=== PATIENT | male | born 1935 | race Caucasian/White ===

== ENCOUNTER 2019-12-20 10:28 | Outpatient (CLI) | payer MEDICARE, SELFPAY ==
[2019-12-20 11:00] LABS: Basophils Absolute Auto 0.1 K/mm3 (0.0-0.1); Basophils Percent Auto 0.7 % (0.2-1.2); Eosinophils Absolute Auto 0.3 K/mm3 (0-0.3); Eosinophils Percent Auto 4.2 % (0-4.4); Hematocrit 40.4 % (42.0-52.0); Hemoglobin 13.1 g/dL (14.0-18.0); Immature Granulocyte Absolute 0.04 K/mm3 (0.00-0.031); Immature Granulocyte Percent A 0.5 % (0-0.5); Lymphocytes Percent Auto 26.5 % (18.3-44.2); Mean Corpuscular HGB Conc 32.4 g/dl (32-36); Mean Corpuscular Hemoglobin 27.9 pg (26-34); Mean Corpuscular Volume 86.1 fl (80-100); Mean Platelet Volume 10.2 fl (7.4-10.4); Monocytes Absolute Auto 0.7 K/mm3 (0.1-0.6); Monocytes Percent Auto 8.6 % (2.6-8.5); Neutrophils Absolute Auto 4.5 K/mm3 (1.3-6.7); Neutrophils Percent Auto 59.5 % (45.5-73.1); Platelet Count Result 309 k/mm3 (150-375); Red Blood Count 4.69 M/mm3 (4.6-6.20); White Blood Count 7.5 K/mm3 (4.5-10.0)
[2019-12-20 11:13] LABS: Alanine Aminotransferase 69 U/L (4-50); Albumin Level 4.5 g/dL (3.5-5.1); Alkaline Phosphatase 179 U/L (38-126); Aspartate Amino Transferase 65 U/L (17-59); Bilirubin,Total 0.8 mg/dL (0.2-1.3); Blood Urea Nitrogen 29 mg/dL (9-20); Calcium 9.7 mg/dL (8.4-10.2); Carbon Dioxide 30 mmol/L (22-30); Chloride 95 mmol/L (98-107); Cholesterol 153 mg/dL (0-200); Estimated Glomerular Filt Rate 30; Glucose 154 mg/dL (75-110); HDL Direct 29 mg/dL; Potassium 4.2 mmol/L (3.4-5.0); Sodium 137 mmol/L (137-145); Triglycerides 167 mg/dL (<150)
[2019-12-20 11:23] LABS: LDL Cholesterol Direct 97 mg/dL
== END 2019-12-20 10:29 | disposition home or self-care (01) ==
PROVIDERS: PCP Internal Medicine; Visit Provider Nurse Practitioner
DX: N18.3 Chronic kidney disease, stage 3 (moderate) (principal); E78.2 Mixed hyperlipidemia; I48.91 Unspecified atrial fibrillation
CPT/HCPCS: 36415; 80053; 80061; 85025

== ENCOUNTER 2019-12-21 15:32 | Outpatient (CLI) | payer MEDICARE, SELFPAY ==
[2019-12-24 23:02] LABS: Albumin 3.6 g/dL (3.8-4.8); Alpha 1 Globulin 0.3 g/dL (0.2-0.3); Alpha 2 Globulin 0.9 g/dL (0.5-0.9); Beta 1 Globulin 0.5 g/dL (0.4-0.6); Gamma Globulin 1.4 g/dL (0.8-1.7); Protein, Total 7.1 g/dL (6.1-8.1)
== END 2019-12-21 15:33 | disposition home or self-care (01) ==
LOC: ANHLAB 15:34
PROVIDERS: PCP Internal Medicine; Visit Provider Nurse Practitioner
DX: E88.09 Other disorders of plasma-protein metabolism, not elsewhere classified (principal)
CPT/HCPCS: 36415; 84155; 84165

== ENCOUNTER 2020-04-02 14:02 | Outpatient (CLI) | payer MEDICARE, SELFPAY ==
--- NOTE | ~2020-04-02 | US_ITS ---
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 COMPARISON: 06/22/2019 FINDINGS: Right and left brachial artery pressures of 116 mm Hg and 123 mm Hg, respectively, are concordant (no rmal difference <= 30 mmHg). The right high-thigh pressure index is 1.04 (normal > 1.2). Pressures we re not obtained in the left lower limb above the ankle due to reported prior multiple stents the left lower limb at indeterminate locations. The right ankle-brachial index (JAVIER) is 0.84 (normal >= 0.9-1). The right great toe-brachial index (T BI) is 0.62 (normal >= 0.6-0.8). The right lower extremity segmental pressure gradients are increased between the right above and [id number] popliteal arteries (normal gradients <= 20-30 mmHg betwee n adjacent levels on the same leg or the same levels on the two legs). Arterial waveforms are triphas ic at the right common femoral and superficial femoral arteries and biphasic more distally. There are brisk systolic upstrokes in the right common femoral, superficial femoral and popliteal arteries. De layed upstrokes with broadened systolic peaks in the right posterior tibial and dorsalis pedis arteri es. The left JAVIER is 1.27 however may be artifactually elevated due to vessel wall calcification has the v essels unable to be occluded on the prior study and the dorsalis pedis artery is also unable to be oc cluded in either the current or prior study. The left TBI is 0.33. Arterial waveforms are triphasic a t the left common femoral artery and biphasic more distally with brisk systolic upstrokes throughout. IMPRESSION: 1. Arterial occlusive disease with mildly decreased right JAVIER and with moderately decreased left TBI, the latter new since the prior study. Reviewed, dictated and finalized at location A. IMPRESSION: 1. Arterial occlusive disease with mildly decreased right JAVIER and with moderate ly decreased left TBI, the latter new since the prior study.
== END 2020-04-02 14:03 | disposition home or self-care (01) ==
PROVIDERS: PCP Internal Medicine; Visit Provider Internal Medicine Cardiovascular Disease
DX: I73.9 Peripheral vascular disease, unspecified (principal); Z95.820 Peripheral vascular angioplasty status with implants and grafts
CPT/HCPCS: 93923

== ENCOUNTER 2020-06-19 10:27 | Outpatient (CLI) | payer MEDICARE, SELFPAY ==
[2020-06-19 11:09] LABS: Hemoglobin A1C 6.1 % (<5.7)
[2020-06-19 11:19] LABS: Cholesterol 153 mg/dL (0-200); HDL Direct 32 mg/dL; Triglycerides 129 mg/dL (<150)
[2020-06-19 11:29] LABS: LDL Cholesterol Direct 92 mg/dL
== END 2020-06-19 10:28 | disposition home or self-care (01) ==
PROVIDERS: PCP Internal Medicine; Visit Provider Internal Medicine
DX: E78.5 Hyperlipidemia, unspecified (principal); R73.03 Prediabetes
CPT/HCPCS: 36415; 80061; 83036

== ENCOUNTER 2020-10-07 08:24 | Outpatient (CLI) | payer MEDICARE, SELFPAY ==
--- NOTE | ~2020-10-07 | US_ITS ---
EXAMINATION: US arterial ankle brachial ind EXAM DATE: 10/07/2020 09:15 INDICATION: Peripheral arterial disease, status post angioplasty with stent. TECHNIQUE: Segmental pressures and plethysmographic and Doppler waveforms of the brachial and lower e xtremity arteries were obtained. There is no prior study for comparison. FINDINGS: Right and left brachial artery pressures of 118 mm Hg and 119 mm Hg, respectively, are concordant (no rmal difference <= 30 mmHg). RIGHT LEG: The ankle-brachial index (JAVIER) is 0.84 (normal >= 0.9-1). The great toe-brachial index (TBI) is 0.28 (normal >= 0.65). The lower extremity ratios, segmental pressure gradients as follows; Dorsalis pedis: 0.79 (94 mmHg). Posterior tibial: 0.84 (100 mmHg). (Normal gradients <= 20-30 mmHg between adjacent levels on the same leg or the same levels on the two legs). Arterial waveforms are diminished and monophasic. LEFT LEG: The ankle-brachial index (JAVIER) is could not obtain (normal >= 0.9-1). The great toe-brachial index (TBI) is 0.72 (normal >= 0.65). The lower extremity ratios, segmental pressure gradients as follows; Dorsalis pedis: Could not obtain ( mmHg). Posterior tibial: Could not obtain ( mmHg). (Normal gradients <= 20-30 mmHg between adjacent levels on the same leg or the same levels on the two legs). Arterial waveforms are diminished and monophasic. IMPRESSION: 1. Right ankle-brachial index mildly decreased. Diminished monophasic waveforms. 2. Left ankle-brachial index could not be obtain. Diminished monophasic waveforms. Reviewed, dictated and finalized at location B. AL WORKER HELPER IMPRESSION: 1. Right ankle-brachial index mildly decreased. Diminished monophasic waveform s. 2. Left ankle-brachial index could not be obtain. Diminished monophasic wavefo onur.
== END 2020-10-07 08:25 | disposition home or self-care (01) ==
PROVIDERS: PCP Internal Medicine; Visit Provider Internal Medicine Cardiovascular Disease
DX: I70.213 Atherosclerosis of native arteries of extremities with intermittent claudication, bilateral legs (principal); Z95.820 Peripheral vascular angioplasty status with implants and grafts
CPT/HCPCS: 93922

== ENCOUNTER 2020-10-28 08:06 | Outpatient (CLI) | payer MEDICARE, SELFPAY ==
[2020-10-28 09:03] LABS: Cholesterol 137 mg/dL (0-200); HDL Direct 23 mg/dL; Triglycerides 151 mg/dL (<150)
[2020-10-28 09:14] LABS: LDL Cholesterol Direct 79 mg/dL
== END 2020-10-28 08:07 | disposition home or self-care (01) ==
PROVIDERS: PCP Internal Medicine; Visit Provider Internal Medicine Cardiovascular Disease
DX: E78.5 Hyperlipidemia, unspecified (principal)
CPT/HCPCS: 36415; 80061

== ENCOUNTER 2020-12-13 09:42 | Outpatient (CLI) | payer MEDICARE, SELFPAY ==
[2020-12-13 10:44] LABS: Cholesterol 117 mg/dL (0-200); HDL Direct 25 mg/dL; Triglycerides 143 mg/dL (<150)
[2020-12-13 10:50] LABS: Hemoglobin A1C 6.5 % (<5.7)
[2020-12-13 10:58] LABS: LDL Cholesterol Direct 61 mg/dL
== END 2020-12-13 09:43 | disposition home or self-care (01) ==
PROVIDERS: PCP Internal Medicine; Visit Provider Internal Medicine
DX: E78.5 Hyperlipidemia, unspecified (principal); R73.03 Prediabetes
CPT/HCPCS: 36415; 80061; 83036

== ENCOUNTER 2021-04-28 15:02 | Outpatient (CLI) | payer MEDICARE, SELFPAY ==
--- NOTE | ~2021-04-28 | XR_ITS ---
XR foot LT min 3V DATE: 04/28/2021 15:30 INDICATION: Dorsal lump, bruising. Pain. TECHNIQUE: 4 views COMPARISON: 03/17/2019 left foot FINDINGS: There is polyarticular osteoarthritic arthritis including first metatarsophalangeal and mul tiple interphalangeal joints. 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 No fracture, dislocation, periosteal reaction or bone destruction. Prominent plantar and posterior calcaneal enthesopathy. Metatarsal and digital artery calcifications suggest diabetes. IMPRESSION: Polyarticular osteoarthritis Plantar posterior calcaneal enthesopathy Prominent metatarsal and digital artery calcifications, suggesting diabetes Reviewed, dictated and finalized at location A.
== END 2021-04-28 15:03 | disposition home or self-care (01) ==
PROVIDERS: PCP Internal Medicine; Visit Provider Internal Medicine
DX: M19.072 Primary osteoarthritis, left ankle and foot (principal); M77.32 Calcaneal spur, left foot
CPT/HCPCS: 73630

== ENCOUNTER 2021-07-01 07:55 | Outpatient (CLI) | payer MEDICARE, SELFPAY ==
[2021-07-01 09:02] LABS: Alanine Aminotransferase 27 U/L (4-50); Albumin Level 3.9 g/dL (3.5-5.1); Alkaline Phosphatase 139 U/L (38-126); Anion Gap 8 mmol/L (8-16); Aspartate Amino Transferase 35 U/L (17-59); Bilirubin,Total 0.5 mg/dL (0.2-1.3); Blood Urea Nitrogen 29 mg/dL (9-20); Carbon Dioxide 28 mmol/L (22-30); Chloride 99 mmol/L (98-107); Cholesterol 125 mg/dL (0-200); Estimated Glomerular Filt Rate 30; Glucose 150 mg/dL (65-110); HDL Direct 28 mg/dL; Potassium 4.4 mmol/L (3.4-5.0); Sodium 135 mmol/L (137-145); Triglycerides 142 mg/dL (<150)
[2021-07-01 09:10] LABS: Hemoglobin A1C 6.8 % (<5.7)
[2021-07-01 09:13] LABS: LDL Cholesterol Direct 58 mg/dL
== END 2021-07-01 07:56 | disposition home or self-care (01) ==
LOC: ANHLAB 07:59
PROVIDERS: PCP Internal Medicine; Visit Provider Internal Medicine
DX: E78.5 Hyperlipidemia, unspecified (principal); E11.9 Type 2 diabetes mellitus without complications
CPT/HCPCS: 36415; 80053; 80061; 83036

== ENCOUNTER 2021-07-08 08:51 | Outpatient (CLI) | payer MEDICARE, SELFPAY ==
--- NOTE | ~2021-07-08 | US_ITS ---
EXAMINATION: US art doppler w press LE BI DATE: 07/08/2021 09:46 INDICATION: Peripheral vascular disease with claudication. TECHNIQUE: Segmental pressures and plethysmographic and Doppler waveforms of the brachial and lower e xtremity arteries were obtained. COMPARISON: 10/07/2020 FINDINGS: Right and left brachial artery pressures of 143 mm Hg and 130 mm Hg, respectively, are concordant (no rmal difference <= 30 mmHg). The right ankle-brachial index (JAVIER) is 0.80 (normal >= 0.9-1). The right great toe-brachial index (T BI) is 0.28 (normal >= 0.6-0.8). Arterial waveforms are biphasic with brisk systolic upstrokes at the right common femoral, superficial femoral and popliteal arteries. Parvus and tardus waveforms with d elayed upstrokes and broadened systolic peaks at the right posterior tibial and dorsalis pedis arteri es. The left JAVIER is 1.06. The left TBI is 0.53. Arterial waveforms are biphasic with brisk systolic upstr okes throughout the arteries of the left lower limb. IMPRESSION: 1. Bilateral arterial occlusive disease with mildly decreased right JAVIER and severely decreased right TBI and with normal left JAVIER but mildly decreased left TBI Reviewed, dictated and finalized at location B. IMPRESSION: 1. Bilateral arterial occlusive disease with mildly decreased right JAVIER and sev erely decreased right TBI and with normal left JAVIER but mildly decreased left TB I
== END 2021-07-08 08:52 | disposition home or self-care (01) ==
PROVIDERS: PCP Internal Medicine; Visit Provider Internal Medicine Cardiovascular Disease
DX: I73.9 Peripheral vascular disease, unspecified (principal)
CPT/HCPCS: 93923

== ENCOUNTER 2021-08-07 08:48 | Outpatient (CLI) | payer MEDICARE, SELFPAY ==
[2021-08-07 09:24] LABS: Hemoglobin 8.4 g/dL (14.0-18.0)
== END 2021-08-07 08:49 | disposition home or self-care (01) ==
LOC: ANHLAB 08:51
PROVIDERS: PCP Internal Medicine; Visit Provider Internal Medicine
DX: D64.9 Anemia, unspecified (principal)
CPT/HCPCS: 36415; 85014; 85018

== ENCOUNTER 2021-08-11 11:48 | Outpatient (CLI) | payer MEDICARE, SELFPAY ==
[2021-08-11 12:08] LABS: Hemoglobin 8.2 g/dL (14.0-18.0)
[2021-08-11 12:38] LABS: Iron 15 ug/dL (49-181)
[2021-08-11 12:47] LABS: Percent Iron Saturation 4 % (20-50)
== END 2021-08-11 11:49 | disposition home or self-care (01) ==
PROVIDERS: PCP Internal Medicine; Visit Provider Internal Medicine
DX: D64.9 Anemia, unspecified (principal)
CPT/HCPCS: 36415; 83540; 83550; 85014; 85018

== ENCOUNTER 2021-09-08 09:45 | Outpatient (CLI) | payer MEDICARE, SELFPAY ==
[2021-09-08 10:11] LABS: Hematocrit 30.4 % (42.0-52.0); Hemoglobin 9.3 g/dL (14.0-18.0)
== END 2021-09-08 09:46 | disposition home or self-care (01) ==
PROVIDERS: PCP Internal Medicine; Visit Provider Internal Medicine
DX: D64.9 Anemia, unspecified (principal)
CPT/HCPCS: 36415; 85014; 85018

== ENCOUNTER 2021-10-23 14:26 | Outpatient (CLI) | payer MEDICARE, SELFPAY ==
--- NOTE | ~2021-10-23 | US_ITS ---
EXAMINATION: US art doppler w press LE BI DATE: 10/23/2021 15:23 INDICATION: Peripheral vascular disease with claudication TECHNIQUE: Segmental pressures and plethysmographic and Doppler waveforms of the brachial and lower e xtremity arteries were obtained. COMPARISON: None. FINDINGS: Right and left brachial artery pressures of 122 mm Hg and 130 mm Hg, respectively, are concordant (no rmal difference <= 30 mmHg). The right ankle-brachial index (JAVIER) is 0.65 (normal >= 0.9-1). The right great toe-brachial index (T BI) is 0.18 (normal >= 0.6-0.8). Arterial waveforms are triphasic at the right common femoral artery and biphasic in the more distal arteries with brisk systolic upstrokes throughout. The left JAVIER is 1.26. The left TBI is 0.22. Arterial waveforms are biphasic with mildly delayed upstr okes at the left posterior tibial artery and with brisk systolic upstrokes at the remaining arteries. IMPRESSION: 1. Bilateral arterial occlusive disease with moderately right JAVIER and severely decreased bilateral TB Is Reviewed, dictated and finalized at location D. NING PROJECT MANAGER IMPRESSION: 1. Bilateral arterial occlusive disease with moderately right JAVIER and severely decreased bilateral TBIs
== END 2021-10-23 14:27 | disposition home or self-care (01) ==
LOC: ANHIMG 14:26
PROVIDERS: PCP Internal Medicine; Visit Provider Internal Medicine Cardiovascular Disease
DX: I73.9 Peripheral vascular disease, unspecified (principal)
CPT/HCPCS: 93923

== ENCOUNTER 2022-02-05 09:19 | Outpatient (CLI) | payer MEDICARE, SELFPAY ==
--- NOTE | 2022-02-05 16:31 | WPDPFTINT ---
PFT Procedure Performed PFT Procedure Performed Plethysmography (Lung Vol) Diffusing Cap (DLCO) Flow Vol Loop Spirometry w/o Bronchodil PFT Interpretation This is a pulmonary function test with spirometry, plethysmography and diffusing capacity. The test was performed and results interpreted in accordance with the 2019 and 2005 ATS/ERS Task Force guidelines respectively using the Global Lung Function Initiative-2012 reference equations. Patient demonstrated good effort and cooperation. Reproducibility criteria were met. The quality of the spirometry maneuver was Grade A. Findings: Spirometry: There is decreased maximal expiratory airflow at all lung volumes with a concaved expiratory flow tracing. The FVC is 2.82 L, 84% predicted. The FEV1 is 1.68 L, 68% predicted. The FEV1: FVC ratio is 60%. Plethysmography: Total lung capacity is 4.18 L, 63% predicted. The functional residual capacity is 2.56 L, 67% predicted. The residual volume is 1.36 L, 51% predicted. Diffusing capacity: The diffusing capacity unadjusted for hemoglobin and carboxyhemoglobin is 10.4, 45% predicted. The diffusing capacity adjusted for alveolar volume is 2.75, 83% predicted. Impression: There is a combined obstructive and restrictive ventilatory abnormality. There are no guidelines to assign the severity of obstruction and restriction with a combined abnormality. In my opinion, given the mildly concave expiratory flow tracing and mildly decreased FEV1: FVC ratio and mild restrictive abnormality I would state there is a mild obstructive abnormality and a mild restrictive abnormality with a normal FEV1. The diffusing capacity unadjusted for hemoglobin and carboxyhemoglobin is moderately decreased and normalizes when adjusted for alveolar volume. There are no prior studies for comparison
== END 2022-02-05 09:20 | disposition home or self-care (01) ==
PROVIDERS: PCP Internal Medicine; Visit Provider Internal Medicine Cardiovascular Disease
DX: Z79.899 Other long term (current) drug therapy (principal); Z91.89 Other specified personal risk factors, not elsewhere classified; R94.2 Abnormal results of pulmonary function studies
CPT/HCPCS: 36415; 84443; 94375; 94726; 94729

== ENCOUNTER 2022-07-17 08:31 | Outpatient (CLI) | payer MEDICARE, SELFPAY ==
[2022-07-17 09:18] LABS: Basophils Percent Auto 0.6 % (0.2-1.2); Eosinophils Absolute Auto 0.2 K/mm3 (0-0.3); Hematocrit 30.5 % (42.0-52.0); Hemoglobin 9.2 g/dL (14.0-18.0); Immature Granulocyte Absolute 0.01 K/mm3 (0.00-0.031); Immature Granulocyte Percent A 0.2 % (0-0.5); Lymphocytes Absolute Auto 0.97 K/mm3 (0.9-3.2); Lymphocytes Percent Auto 19.5 % (18.3-44.2); Mean Corpuscular HGB Conc 30.2 g/dl (32-36); Mean Corpuscular Hemoglobin 26.2 pg (26-34); Mean Corpuscular Volume 86.9 fl (80-100); Mean Platelet Volume 9.2 fl (7.4-10.4); Monocytes Absolute Auto 0.4 K/mm3 (0.1-0.6); Monocytes Percent Auto 7.6 % (2.6-8.5); Neutrophils Absolute Auto 3.4 K/mm3 (1.3-6.7); Neutrophils Percent Auto 68.1 % (45.5-73.1); Platelet Count Result 304 k/mm3 (150-375); Red Blood Count 3.51 M/mm3 (4.6-6.20); Red Cell Distribution Width 16.8 % (11.5-14.5)
[2022-07-17 09:27] LABS: Hemoglobin A1C 6.1 % (<5.7)
[2022-07-17 09:38] LABS: Alanine Aminotransferase 18 U/L (6-50); Albumin Level 3.9 g/dL (3.5-5.1); Alkaline Phosphatase 161 U/L (38-126); Anion Gap 10 mmol/L (8-16); Aspartate Amino Transferase 32 U/L (17-59); Bilirubin,Total 0.6 mg/dL (0.2-1.3); Blood Urea Nitrogen 24 mg/dL (9-20); Calcium 8.7 mg/dL (8.4-10.2); Carbon Dioxide 30 mmol/L (22-30); Chloride 101 mmol/L (98-107); Cholesterol 108 mg/dL (0-200); Estimated Glomerular Filt Rate 36; Glucose 134 mg/dL (65-110); HDL Direct 36 mg/dL; Potassium 3.8 mmol/L (3.4-5.0); Sodium 141 mmol/L (137-145); Triglycerides 85 mg/dL (<150)
[2022-07-17 09:49] LABS: LDL Cholesterol Direct 43 mg/dL
[2022-07-17 13:20] LABS: Iron 137 ug/dL (49-181)
[2022-07-17 13:33] LABS: Percent Iron Saturation 33 % (20-50)
== END 2022-07-17 08:32 | disposition home or self-care (01) ==
LOC: ANHLAB 08:31
PROVIDERS: PCP Internal Medicine; Visit Provider Nurse Practitioner
DX: I25.10 Atherosclerotic heart disease of native coronary artery without angina pectoris (principal); D64.9 Anemia, unspecified; E78.2 Mixed hyperlipidemia; E11.9 Type 2 diabetes mellitus without complications
CPT/HCPCS: 36415; 80053; 80061; 83036; 83540; 83550; 85025